=== PATIENT | male | born 1945 | race Caucasian/White ===

== ENCOUNTER 2022-11-09 08:31 | Outpatient (OUT) | payer OTHER, SELFPAY ==
[2022-11-09 09:14] LABS: Anion Gap 10.7; BUN Creatinine Ratio 10.6; Calcium 8.9 mg/dL (8.5-10.1); Carbon Dioxide 29.2 mmol/L (21.0-32.0); Chloride 103 mmol/L (98-107); Estimated GFR (African America >60 (>=60); Estimated GFR (Non-African Ame >60 (>=60); Glucose 136 mg/dL (74-106); Potassium 3.9 mmol/L (3.5-5.1); Sodium 139 mmol/L (136-145)
== END 2022-11-09 08:32 | disposition home or self-care (01) ==
LOC: LAB 08:33
PROVIDERS: PCP Internal Medicine; Visit Provider Internal Medicine
DX: I10 Essential (primary) hypertension (principal)
CPT/HCPCS: 36415; 80048

== ENCOUNTER 2022-11-16 08:01 | Outpatient (OUT) | payer OTHER, SELFPAY ==
--- NOTE | 2022-11-16 08:02 | VEIN_ITS ---
Patient: KELSIE LEON Exam Date: 11/16/2022 : 1945 Gender:M Ordering : SHAIKH Anson TAYLOR . Admission #: [id number] Family : Order #: [id number] CLICK HERE TO VIEW EXAM RADIOLOGY REPORT PROCEDURE: FACILITY [facility]IN C[facility] - OFFICE VISIT INITIAL COMPARISON: None. PROGRESS NOTES: [age] year old male who presents with a 3 year history of leg pain, bulging dilated veins, leg swelling, muscle cramping, and burning sensation. The patient's right leg symptoms are worse than the left. There has been a progression of symptoms over the past 3 years. This increases with prolonged standing and leg dependency. The patient describes an improvement with rest and elevation. The patient denies any signs and symptoms to suggest arterial ischemia. The patient describes a family history hypertension, stroke, and cardiac issues. The patient has drinking and smoking history of occasional alcohol consumption; no tobacco use. Patient has a past medical history significant for obesity, hypertension, prior deep vein thrombus. The patient describes a history of deep venous thrombus 3 years ago; patient has been on Eliquis 5 mg 2 times per day since that time. See separate history and physical for medication list. No prior treatment for varicose or spider veins. Current use of compression stockings. After review of nurse notes, history and physical exam I discussed at length the pathophysiology of venous hypertension and possible treatments, therapies and strategies available. We discussed at length the importance of elevating the lower extremities above the level of the heart, increased physical activity and compression stocking use. Ultrasound venous reflux study performed today was discussed at length with the patient. The report demonstrates markedly dilated and incompetent bilateral great saphenous vein, bilateral anterior accessory saphenous vein, right small saphenous vein, dilated and incompetent right calf orthopedic surgeon, and multiple incompetent dilated branch saphenous varicosities bilaterally. PHYSICAL EXAM: The right leg demonstrates several varicosities, a few scattered spider veins, no ulceration, mild edema, no skin discoloration. The left leg demonstrates several varicosities, a few scattered spider veins, no ulceration, mild edema, no skin discoloration. Both thighs, legs and feet were symmetrically warm to the touch. Good posterior tibial and dorsalis pedis pulses were present bilaterally. IMPRESSION: 1. Bilateral lower extremity venous insufficiency 2. Bilateral lower extremity varicose veins 3. Bilateral lower extremity subcutaneous edema 4. No flow significant arterial disease 5. CEAP: C3, EP, AP, CO PLAN: 1. Continued use of compression stockings 2. Elevated legs and increased physical activity symptomatic relief 3. Endovenous laser ablation of right GSV, left GSV, right AASV, left AASV, right SSV, right calf orthopedic surgeon vein if still competent, and bilateral microfoam chemical ablation of incompetent branch saphenous varicosities. Nurse notes, history and physical were reviewed and confirmed, see attached forms. The nurse was present throughout the physical exam and consultation Dictated by: Julian White M.D. on 11/16/2022 at 11:31 Approved by: Julian White M.D. on 11/16/2022 at 11:41
--- NOTE | 2022-11-16 08:03 | VEIN_ITS ---
Patient: KELSIE LEON Exam Date: 11/16/2022 : 1945 Gender:M Ordering : [employer]Smooth TAYLOR . Admission #: [id number] Family : Order #: [id number] CLICK HERE TO VIEW EXAM RADIOLOGY REPORT PROCEDURE: VC EXT VENOUS REFLUX CHRIS LMTD COMPARISON: None. INDICATIONS: I83.813 Pain due to varicose veins of bilateral legs TECHNIQUE: Duplex imaging of the lower extremity to assess the deep and superficial venous system for the presence of deep or superficial venous incompetence and to document the location and severity of disease. The study includes evaluation of the great saphenous vein (GSV), anterior accessory saphenous vein (AASV) and small saphenous vein (SSV). Patient scanned in reverse Trendelenburg and standing. FINDINGS: RIGHT LOWER EXTREMITY: Saphenofemoral Junction Reflux: Yes 11.4mm 3.7 sec GSV: Diam (mm) Reflux/ Time (sec) Proximal Thigh 9.2 Yes 3.2 Mid Thigh 14.7 Yes 2.5 Distal Thigh 11.5 Yes 2.5 Prox Calf 9.6 Yes 1.7 Mid Calf 10.8 Yes 1.5 Saphenopopliteal Junction Reflux: 5.6mm Yes 1.3 SSV: Proximal Calf 6.2 Yes 1.1 Mid Calf 6.2 Yes 2.9 AASV: Proximal Thigh 12.8 Yes 2.3 Mid Thigh 11.0 Yes 2.1 Distal Thigh Thrombi: No acute or chronic thrombus Compressibility: Normal Flow: Normal Preforator: Dist/med calf 2.5mm with 0s reflux. Mid/med calf 7.0mm with 2.1s reflux. Tech Note: Incompetent SFJ, GSV, AASV, SPJ, and SSV. Patent varicose vein mid med calf 5.7mm with 1.6s reflux. Patent varicose vein mid/med thigh 7.2mm with 2.4s reflux. Patent varicose vein mid ant thigh 9.2mm with 1.7s reflux. Patent varicose vein prox/ant thigh 7.9mm with 1.2s reflux. LEFT LOWER EXTREMITY: Saphenofemoral Junction Reflux: Yes 10.7 mm 3.2 sec GSV: Diam (mm) Reflux/Time (sec) Proximal Thigh 10.9 Yes 2.7 Mid Thigh 8.1 Yes 3.1 Distal Thigh 8.6 Yes 2.6 Prox Calf 8.1 Yes 1.3 Mid Calf 5.9 Yes 2.5 Saphenopopliteal Junction Relux: 4.1 mm Yes 0.4 SSV: Proximal Calf 3.4 No Mid Calf 3.9 No AASV: Proximal Thigh 8.9 Yes 2.8 Mid Thigh 5.4 Yes 1.4 Distal Thigh Thrombi: No acute or chronic thrombus visualized Compressibility: Normal Flow: Normal Card Boxer: Dist/med calf 5.8mm with 0s reflux. Tech Note: Incompetent SFJ, GSV, and AASV. Patent varicose vein dist/med calf 8.3mm with 1.6s reflux. Patent varicose vein mid/med thigh 8.6mm with 2.2s reflux. Patent varicose vein mid/ant thigh 6.1mm with 2.6s reflux. CONCLUSION: 1. Abnormally dilated and incompetent right great saphenous, small saphenous, and anterior accessory saphenous veins along with a dilated incompetent calf heavy equipment operator/paver vein, and numerous incompetent branch saphenous varicosities. 2. Abnormally dilated and incompetent left great saphenous and anterior accessory saphenous veins along with numerous incompetent branch saphenous varicosities. 3. Consultation for endovenous ablation is recommended. Dictated by: Julian White M.D. on 11/16/2022 at 09:04 Approved by: Julian White M.D. on 11/16/2022 at 11:31
== END 2022-11-16 08:02 | disposition home or self-care (01) ==
PROVIDERS: PCP Internal Medicine; Visit Provider Internal Medicine
DX: R60.0 Localized edema (principal); G57.12 Meralgia paresthetica, left lower limb; I87.2 Venous insufficiency (chronic) (peripheral); I83.813 Varicose veins of bilateral lower extremities with pain
CPT/HCPCS: 93970; G0463

== ENCOUNTER 2022-12-29 10:29 | Outpatient (OUT) | payer OTHER, SELFPAY ==
--- NOTE | 2022-12-29 10:30 | VEIN_ITS ---
[address] [address] Patient Name: KELSIE LEON MRN: [id number] date: 1945 Sex: M Assigned Patient Location: Current Patient Location: Accession/Order Number: [id number] Exam Date: 12/29/2022 10:35 Report Date: 12/29/2022 12:04 At the request of: KELSIE CAMARILLO Procedure: VC Endovenous Ablation 1VeinRT EXAMINATION: VC Endovenous Ablation 1Vein. Saphenous vein HISTORY: I83.813 Pain due to varicose veins of bilateral leg veins COMPARISON: No relevant comparison available. TECHNIQUE: The risks and benefits of the procedure had been previously discussed, and were rediscussed at length. Informed written consent was obtained. Wanda Gonzalez and Karlos Wiggins assisted. Time out procedure was performed. The right lower extremity was prepared and draped in the usual sterile fashion to allow knee flexion in the sterile field. Duplex ultrasound probe was draped in a sterile cover, sterile transmission gel was used. Venous mapping was performed with the areas of dilation and large tributaries marked. The total length was 67 cm from the entry 3 cm above the medial malleolus to 3 cm below the saphenofemoral junction. The diameter of the greater saphenous vein ranged from 6-15 mm. A 30 gauge needle and 1% buffered lidocaine was used to anesthetize the entry site. A 4 mm incision was made with a scalpel and the saphenous vein was entered percutaneously under direct ultrasound guidance with a micropuncture set, a single stick was successful in gaining access. A micro-guide wire was inserted and the needle removed. A micro-set including a dilator was inserted over the microwire and the needle and dilator were removed. A 0.018 guide wire was inserted through the micro-set and threaded through the saphenous vein to the saphenofemoral junction. The dilator was removed and an introducer sheath was inserted over the wire until the end of the sheath entered the saphenofemoral junction. The dilator and wire were removed and the 600 micron fiber was introduced and placed and positioned so that it extended beyond the sheath and was 3 cm peripheral to the saphenofemoral femoral junction. Final position of the fiber was determined by ultrasound guidance and duplex imaging. Tumescent anesthetic was delivered by ultrasound guidance. 375 cc of fluid was delivered along the entire course of the saphenous vein. The solution consisted of 1000 cc of normal saline with 40 mL of 1% lidocaine and 20 mL of sodium bicarbonate. A final positioning check was made. The energy source was turned on by means of the foot pedal and the fiber and sheath were withdrawn. Double-energy was deposited in the first 15 cm due to the patient being on anticoagulation. The total number of Joules delivered was 3923. The laser was active for 490 seconds under continuous pulse, average laser use of 8 J. Laser start time 11:34 12/29/22 . Laser stop time 11:44 12/29/22 . A duplex ultrasound revealed compressibility and flow at the saphenofemoral junction immediately after the procedure. Hemostasis at the access site was achieved. The skin incision of the saphenous vein was closed with a 4 x 4. A compression stocking was applied. Postop instructions were given. A follow up appointment was recommended and scheduled. The patient tolerated the procedure well and was discharged in good condition . VEIN/VC Endovenous Ablation 1VeinRT IMPRESSION: Technically successful endovenous laser ablation right great saphenous vein Electronically authenticated by: KELSIE CAMARILLO Date: 12/29/2022 12:04
[2022-12-29] MEDS: 0.9 % SODIUM CHLORIDE 500 ML, LIDOCAINE HCL 20 ML, SODIUM BICARBONATE 10 MEQ INJ (10:57)
== END 2022-12-29 10:30 | disposition home or self-care (01) ==
LOC: VC 10:29
PROVIDERS: PCP Internal Medicine; Visit Provider Radiology Diagnostic Radiology
DX: I83.813 Varicose veins of bilateral lower extremities with pain (principal)
CPT/HCPCS: 36478

== ENCOUNTER 2023-01-03 09:20 | Outpatient (OUT) | payer OTHER, SELFPAY ==
--- NOTE | 2023-01-03 09:22 | VEIN_ITS ---
Patient: KELSIE LEON Exam Date: 01/03/2023 : 1945 Gender:M Ordering : DR KELSIE CAMARILLO M.D. Admission #: [id number] Family : Order #: [id number] CLICK HERE TO VIEW EXAM RADIOLOGY REPORT PROCEDURE: VC EXT VENOUS RT LMTD COMPARISON: None. INDICATIONS: I80.01 Phlebitis of superficial veins of rt lower extremity TECHNIQUE: Lower extremity giron scale and Duplex Doppler evaluation of the deep venous system from the inguinal ligament through the calf veins. FINDINGS: REGION: Right lower extremity. THROMBI: Negative for DVT. Heat induced thrombus in right GSV 5.2 cm from SFJ and extends to distal lower leg. COMPRESSIBILITY: Non-compressible segments. FLOW: Areas of no flow. OTHER: Patent veneer manufacturer mid medial lower leg measures 6.3 mm. CONCLUSION: 1. Successful post ablation occlusion of right great saphenous vein. Dictated by: Julian White M.D. on 01/03/2023 at 11:56 Approved by: Julian White M.D. on 01/03/2023 at 11:57
--- NOTE | 2023-01-03 09:22 | VEIN_ITS ---
Patient: KELSIE LEON Exam Date: 01/03/2023 : 1945 Gender:M Ordering : DR KELSIE CAMARILLO M.D. Admission #: [id number] Family : Order #: [id number] CLICK HERE TO VIEW EXAM RADIOLOGY REPORT PROCEDURE: FACILITY EST L[facility]D VEIN CENTER - OFFICE VISIT FOLLOW UP COMPARISON: None. PROGRESS NOTES: The patient reports improvement in leg symptoms. There has been interval reduction in varicosities. The patient has followed our recommendations to walk 20-30 minutes once or twice per day since the procedure. Physical exam demonstrates decrease in varicosities of the leg. Persistent varicosities are identified along the legs bilaterally. Review of the ultrasound performed the same day demonstrates occlusive thrombus extending throughout the treated vein(s), see separate report, consistent with a successful ablation. No thrombus extending into or beyond the saphenofemoral junction. The patient expressed a desire to proceed with treatment of remaining incompetent and dilated superficial veins. The patient was informed that treatment was a process and would require several procedures/sessions. VEIN/ Facility EST LMTD IMPRESSION: 1. Successful ablation of the right great saphenous vein(s). 2. Persistent bilateral lower extremity incompetent and dilated superficial veins and lower extremity symptoms. PLAN: 1. Endovenous laser ablation of left great saphenous vein. Nurse notes, history and physical were reviewed and confirmed, see attached forms. The nurse was present throughout the physical exam and consultation Dictated by: Julian White M.D. on 01/03/2023 at 11:57 Approved by: Julian White M.D. on 01/03/2023 at 11:58
== END 2023-01-03 09:21 | disposition home or self-care (01) ==
LOC: VC 09:21
PROVIDERS: PCP Internal Medicine; Visit Provider Radiology Diagnostic Radiology
DX: I80.01 Phlebitis and thrombophlebitis of superficial vessels of right lower extremity (principal)
CPT/HCPCS: 93971; G0463

== ENCOUNTER 2023-01-18 10:16 | Outpatient (OUT) | payer OTHER, SELFPAY ==
--- NOTE | 2023-01-18 10:19 | VEIN_ITS ---
[address] [address] Patient Name: KELSIE LEON MRN: [id number] date: 1945 Sex: M Assigned Patient Location: Current Patient Location: Accession/Order Number: [id number] Exam Date: 01/18/2023 10:25 Report Date: 01/18/2023 11:27 At the request of: KELSIE Maricruz RABIA Procedure: VC Endovenous Ablation 1VeinLT EXAMINATION: VC Endovenous Ablation 1Vein, left great saphenous vein HISTORY: Pain due to varicose veins of bilateral legs I83.813 COMPARISON: No relevant comparison available. TECHNIQUE: The risks and benefits of the procedure had been previously discussed, and were rediscussed at length. Informed written consent was obtained. Wanda Gonzalez and Karlos Wiggins assisted. Time out procedure was performed. The left lower extremity was prepared and draped in the usual sterile fashion to allow knee flexion in the sterile field. Duplex ultrasound probe was draped in a sterile cover, sterile transmission gel was used. Venous mapping was performed with the areas of dilation and large tributaries marked. The total length was 70 cm from the entry 4 cm above the medial malleolus to 3 cm below the saphenofemoral junction. The diameter of the greater saphenous vein ranged from 5-11 mm. A 30 gauge needle and 1% buffered lidocaine was used to anesthetize the entry site. A 4 mm incision was made with a scalpel and the saphenous vein was entered percutaneously under direct ultrasound guidance with a micropuncture set, a single stick was successful in gaining access. A micro-guide wire was inserted and the needle removed. A micro-set including a dilator was inserted over the microwire and the needle and dilator were removed. A 0.018 guide wire was inserted through the micro-set and threaded through the saphenous vein to the saphenofemoral junction. The dilator was removed and an introducer sheath was inserted over the wire until the end of the sheath entered the saphenofemoral junction. The dilator and wire were removed and the 600 micron fiber was introduced and placed and positioned so that it extended beyond the sheath and was 3 cm peripheral to the saphenofemoral femoral junction. Final position of the fiber was determined by ultrasound guidance and duplex imaging. Tumescent anesthetic was delivered by ultrasound guidance. 400 cc of fluid was delivered along the entire course of the saphenous vein. The solution consisted of 1000 cc of normal saline with 40 mL of 1% lidocaine and 20 mL of sodium bicarbonate. A final positioning check was made. The energy source was turned on by means of the foot pedal and the fiber and sheath were withdrawn. Double energy was applied for the first 25 cm secondary to the patient being on anticoagulation in the size of the vein. The total number of Joules delivered was 4319. The laser was active for 540 seconds under continuous pulse, average laser use of 8 J. Laser start time 11:01 AM 01/18/23 . Laser stop time 11:11 AM 01/18/2023 . A duplex ultrasound revealed compressibility and flow at the saphenofemoral junction immediately after the procedure. Hemostasis at the access site was achieved. The skin incision of the saphenous vein was closed with a 4 x 4. A compression stocking was applied. Postop instructions were given. A follow up appointment was recommended and scheduled. The patient tolerated the procedure well and was discharged in good condition . VEIN/VC Endovenous Ablation 1VeinLT IMPRESSION: Technically successful endovenous laser ablation of the left great saphenous vein Electronically authenticated by: KELSIE CAMARILLO Date: 01/18/2023 11:27
[2023-01-18] MEDS: 0.9 % SODIUM CHLORIDE 500 ML, LIDOCAINE HCL 20 ML, SODIUM BICARBONATE 10 MEQ INJ (10:35)
[2023-01-18] MEDS: LIDOCAINE HCL 10 ML, SODIUM BICARBONATE 1 MEQ INJ (10:36)
== END 2023-01-18 10:17 | disposition home or self-care (01) ==
LOC: VC 10:17
PROVIDERS: PCP Radiology Diagnostic Radiology; Visit Provider Radiology Diagnostic Radiology
DX: I83.813 Varicose veins of bilateral lower extremities with pain (principal)
CPT/HCPCS: 36478

== ENCOUNTER 2023-01-24 10:46 | Outpatient (OUT) | payer OTHER, SELFPAY ==
--- NOTE | 2023-01-24 | VEIN_ITS ---
Patient: FAUSTO LEON Exam Date: 01/24/2023 : 1945 Gender:M Ordering : DR FAUSTO WOLFE M.D. Admission #: [id number] Family : Order #: [id number] CLICK HERE TO VIEW EXAM RADIOLOGY REPORT PROCEDURE: [facility] EST L[facility]D VEIN CENTER - OFFICE VISIT FOLLOW UP [facility] PROGRESS NOTES: The patient reports no significant problems following intravenous laser ablation of the left great saphenous vein. The patient did not require oral analgesics. The patient has worn his compression stockings. The patient has followed our recommendations to walk 20-30 minutes once or twice per day since the procedure. Physical exam demonstrates an area of mild bruising along the medial left thigh measuring 10 x 5 mm in size likely related to tumescent injection. The incision site is sealed. No erythema or warmth to suggest cellulitis or thrombophlebitis. No active ulceration Review of the ultrasound performed the same day demonstrates occlusive thrombus extending throughout the treated left great saphenous vein with heat induced thrombus 4.0 cm from the saphenofemoral junction. The patient expressed a desire to proceed with treatment of incompetent right anterior accessory saphenous vein. VEIN/[facility] EST LMTD IMPRESSION: 1. Successful ablation of the left great saphenous vein. 2. Persistent incompetent bilateral anterior accessory saphenous veins. PLAN: Intravenous laser ablation right anterior accessory saphenous vein Nurse notes, history and physical were reviewed and confirmed, see attached forms. The nurse was present throughout the physical exam and consultation Dictated by: Fausto Wolfe MD on 01/24/2023 at 11:37 Approved by: Fausto Wolfe MD on 01/24/2023 at 11:39
--- NOTE | 2023-01-24 | VEIN_ITS ---
Patient: FAUSTO LEON Exam Date: 01/24/2023 : 1945 Gender:M Ordering : DR FAUSTO WOLFE M.D. Admission #: [id number] Family : Order #: [id number] CLICK HERE TO VIEW EXAM RADIOLOGY REPORT PROCEDURE: VC EXT VENOUS LT LIMITED COMPARISON: None. INDICATIONS: Phlebitis of superficial veins of lt lower extremity I80.02 TECHNIQUE: Lower extremity giron scale and Duplex Doppler evaluation of the deep venous system from the inguinal ligament through the calf veins. FINDINGS: REGION: Left lower extremity. THROMBI: Negative for DVT. Heat induced thrombus in left GSV 4.0 cm from SFJ and extends to distal lower leg. COMPRESSIBILITY: Non-compressible segments corresponding to thrombus. FLOW: Absent flow corresponding to thrombus OTHER: Patent external grinder tender distal medial lower leg measures 6.5 mm. CONCLUSION: Post ablation occlusion of the treated left great saphenous vein with heat induced thrombus 4 cm from the saphenofemoral junction Dictated by: Fausto Wolfe MD on 01/24/2023 at 11:17 Approved by: Fausto Wolfe MD on 01/24/2023 at 11:18
== END 2023-01-24 10:47 | disposition home or self-care (01) ==
LOC: VC 10:46
PROVIDERS: PCP Radiology Diagnostic Radiology; Visit Provider Radiology Diagnostic Radiology
DX: I80.02 Phlebitis and thrombophlebitis of superficial vessels of left lower extremity (principal)
CPT/HCPCS: 93971; G0463

== ENCOUNTER 2023-02-16 11:38 | Outpatient (OUT) | payer OTHER, SELFPAY ==
[2023-02-16 11:53] LABS: Basophils Absolute Auto 0.1 10^3/uL (0.0-0.1); Basophils Percent Auto 0.5 % (0.2-2.0); Eosinophils Absolute Auto 0.6 10^3/uL (0.0-0.7); Eosinophils Percent Auto 6.6 % (0.9-7.0); Hematocrit 45.2 % (42.0-54.0); Immature Granulocytes Abs Auto 0.04 10^3/uL (0.00-0.03); Immature Granulocytes Pct Auto 0.4 % (0.0-0.5); Lymphocytes Absolute Auto 3.4 10^3/uL (1.2-3.8); Lymphocytes Percent Auto 34.8 % (20.5-60.0); Mean Corpuscular HGB Conc 33.2 g/dL (29.9-35.2); Mean Corpuscular Volume 84.3 fL (80.0-94.0); Mean Platelet Volume 9.5 fL (9.5-13.5); Monocytes Absolute Auto 0.9 10^3/uL (0.3-0.8); Monocytes Percent Auto 9.4 % (1.7-12.0); Neutrophils Absolute Auto 4.7 10^3/uL (1.4-6.5); Neutrophils Percent Auto 48.3 % (43.0-75.0); Platelet Count 188 10^3/uL (150-450); Red Blood Count 5.36 10^6/uL (4.70-6.10); Red Cell Distribution Width 13.9 % (11.0-15.0); White Blood Count 9.8 10^3/uL (4.0-11.0)
[2023-02-16 12:09] LABS: Estimated Average Glucose 131 mg/dL; Glycohemoglobin A1C 6.2 % (4.5-6.2)
[2023-02-16 12:13] LABS: Alanine Aminotransferase 17 U/L (16-63); Albumin Globulin Ratio 1.2; Albumin Level 3.8 g/dL (3.4-5.0); Alkaline Phosphatase 53 U/L (46-116); Anion Gap 9.7; Aspartate Amino Transferase 13 U/L (15-37); BUN Creatinine Ratio 10.5; Bilirubin Total 0.7 mg/dL (0.2-1.0); Calcium 8.7 mg/dL (8.5-10.1); Carbon Dioxide 26.2 mmol/L (21.0-32.0); Chloride 105 mmol/L (98-107); Cholesterol 141 mg/dL (<=200); Estimated GFR (African America >60 (>=60); Estimated GFR (Non-African Ame >60 (>=60); Globulin 3.3 g/dL; Glucose 122 mg/dL (74-106); HDL Cholesterol 35 mg/dL (40-60); Potassium 3.9 mmol/L (3.5-5.1); Sodium 137 mmol/L (136-145); Total Protein 7.1 g/dL (6.4-8.2); Triglycerides 177 mg/dL (<=150); VLDL CHOLESTEROL 35.4 mg/dL
== END 2023-02-16 11:39 | disposition home or self-care (01) ==
LOC: LAB 11:40
PROVIDERS: PCP Internal Medicine; Visit Provider Internal Medicine
DX: I10 Essential (primary) hypertension (principal); I82.409 Acute embolism and thrombosis of unspecified deep veins of unspecified lower extremity; E78.5 Hyperlipidemia, unspecified; Z87.898 Personal history of other specified conditions
CPT/HCPCS: 36415; 80053; 80061; 83036; 85025

== ENCOUNTER 2023-02-16 12:30 | Outpatient (OUT) | payer OTHER, SELFPAY ==
--- NOTE | 2023-02-16 | VEIN_ITS ---
[address] [address] Patient Name: KELSIE LEON MRN: [id number] date: 1945 Sex: M Assigned Patient Location: Current Patient Location: Accession/Order Number: [id number] Exam Date: 02/16/2023 12:34 Report Date: 02/16/2023 13:37 At the request of: KELSIE Maricruz CAMARILLO Procedure: VC Endovenous Ablation 1VeinRT EXAMINATION: VC Endovenous Ablation 1Vein right anterior accessory saphenous vein HISTORY: Pain due to varicose veins of bilateral legs I83.813 COMPARISON: No relevant comparison available. TECHNIQUE: The risks and benefits of the procedure had been previously discussed, and were rediscussed at length. Informed written consent was obtained. Jade Wise and Karlos Wiggins assisted. Time out procedure was performed. The right lower extremity was prepared and draped in the usual sterile fashion to allow knee flexion in the sterile field. Duplex ultrasound probe was draped in a sterile cover, sterile transmission gel was used. Venous mapping was performed with the areas of dilation and large tributaries marked. The total length was 15 cm from the entry mid thigh to 3 cm below the saphenofemoral junction. The diameter of the anterior accessory saphenous vein ranged from 4-13 mm. A 30 gauge needle and 1% buffered lidocaine was used to anesthetize the entry site. A 4 mm incision was made with a scalpel and the saphenous vein was entered percutaneously under direct ultrasound guidance with a micropuncture set, a single stick was successful in gaining access. A micro-guide wire was inserted and the needle removed. A micro-set including a dilator was inserted over the microwire and the needle and dilator were removed. A 0.018 guide wire was inserted through the micro-set and threaded through the saphenous vein to the saphenofemoral junction. The dilator was removed and an introducer sheath was inserted over the wire until the end of the sheath entered the saphenofemoral junction. The dilator and wire were removed and the 600 micron fiber was introduced and placed and positioned so that it extended beyond the sheath and was 3 cm peripheral to the saphenofemoral femoral junction. Final position of the fiber was determined by ultrasound guidance and duplex imaging. Tumescent anesthetic was delivered by ultrasound guidance. 100 cc of fluid was delivered along the entire course of the saphenous vein. The solution consisted of 1000 cc of normal saline with 40 mL of 1% lidocaine and 20 mL of sodium bicarbonate. A final positioning check was made. The energy source was turned on by means of the foot pedal and the fiber and sheath were withdrawn. The total number of Joules delivered was 1131. The laser was active for 141seconds under continuous pulse, average laser use of 8 J. Laser start time 13:10 PM 02/16/2023 . Laser stop time 1313 02/16/2023M . A duplex ultrasound revealed compressibility and flow at the saphenofemoral junction immediately after the procedure. Hemostasis at the access site was achieved. The skin incision of the saphenous vein was closed with a 4 x 4. A compression stocking was applied. Postop instructions were given. A follow up appointment was recommended and scheduled. The patient tolerated the procedure well and was discharged in good condition . VEIN/VC Endovenous Ablation 1VeinRT IMPRESSION: Technically successful endovenous laser ablation right anterior accessory saphenous vein Electronically authenticated by: KELSIE CAMARILLO Date: 02/16/2023 13:37
[2023-02-16] MEDS: LIDOCAINE HCL 1% 100 MG/10 ML MDV INJ (13:38)
[2023-02-16] MEDS: 0.9 % SODIUM CHLORIDE 500 ML, LIDOCAINE HCL 20 ML, SODIUM BICARBONATE 10 MEQ INJ (13:39)
== END 2023-02-16 12:31 | disposition home or self-care (01) ==
LOC: VC 12:30
PROVIDERS: PCP Internal Medicine; Visit Provider Radiology Diagnostic Radiology
DX: I83.813 Varicose veins of bilateral lower extremities with pain (principal)
CPT/HCPCS: 36478

== ENCOUNTER 2023-02-19 11:23 | Outpatient (OUT) | payer OTHER, SELFPAY ==
--- NOTE | 2023-02-19 11:25 | VEIN_ITS ---
Patient: FAUSTO LEON Exam Date: 02/19/2023 : 1945 Gender:M Ordering : DR FAUSTO WOLFE M.D. Admission #: [id number] Family : Order #: [id number] CLICK HERE TO VIEW EXAM RADIOLOGY REPORT PROCEDURE: VC EXT VENOUS RT LMTD COMPARISON: VC EXT VENOUS RT LMTD, 01/03/2023. INDICATIONS: I80.01 Phlebitis of superficial veins of rt lower extremity TECHNIQUE: Lower extremity giron scale and Duplex Doppler evaluation of the deep venous system from the inguinal ligament through the calf veins. FINDINGS: REGION: Right lower extremity. THROMBI: Negative for DVT. Heat induced thrombus in right AASV 2.1 cm from SFJ and extends to mid thigh. COMPRESSIBILITY: Non-compressible segments corresponding to thrombus. FLOW: Absent flow corresponding CONCLUSION: Post ablation occlusion of the right anterior accessory saphenous vein with heat induced thrombus 2.1 cm from the saphenofemoral junction Dictated by: Fausto Wolfe MD on 02/19/2023 at 11:52 Approved by: Fausto Wolfe MD on 02/19/2023 at 11:53
--- NOTE | 2023-02-19 11:25 | VEIN_ITS ---
Patient: FAUSTO LEON Exam Date: 02/19/2023 : 1945 Gender:M Ordering : DR FAUSTO WOLFE M.D. Admission #: [id number] Family : Order #: [id number] CLICK HERE TO VIEW EXAM RADIOLOGY REPORT PROCEDURE: FACILITY EST [facility] - OFFICE VISIT FOLLOW UP COMPARISON: FACILITY EST [facility], 01/24/2023. FACILITY EST [facility], 01/03/2023. PROGRESS NOTES: The patient reports some mild tenderness of the right leg related to the compression stocking after intravenous laser ablation of the right anterior accessory saphenous vein. The patient did wear his compression stocking. The patient did not require oral analgesics. The patient has done is best to exercise following the procedure Physical exam demonstrates a large area of moderate bruising in the anterior proximal right thigh measuring 30 x 15 cm. The right anterior accessory saphenous vein cannot be palpated. The incision is closed. No erythema or warmth to suggest cellulitis or thrombophlebitis. No active ulceration. Review of the ultrasound performed the same day demonstrates occlusive thrombus extending throughout the treated right anterior accessory saphenous vein with heat induced thrombus 2.1 cm in the saphenofemoral junction. The patient expressed a desire to pause treatments at this time as he is going to [place], [place] for the next 3 months. The patient will call our office when he is ready to resume treatments. VEIN/ Facility EST LMTD IMPRESSION: 1. Successful ablation of the right anterior accessory saphenous vein 2. 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 PLAN: Intravenous laser ablation left anterior accessory saphenous vein when the patient would like to continue treatment Nurse notes, history and physical were reviewed and confirmed, see attached forms. The nurse was present throughout the physical exam and consultation Dictated by: Fausto Wolfe MD on 02/19/2023 at 12:05 Approved by: Fausto Wolfe MD on 02/19/2023 at 12:20
== END 2023-02-19 11:24 | disposition home or self-care (01) ==
LOC: VC 11:24
PROVIDERS: PCP Internal Medicine; Visit Provider Radiology Diagnostic Radiology
DX: I80.01 Phlebitis and thrombophlebitis of superficial vessels of right lower extremity (principal)
CPT/HCPCS: 93971; G0463